=== PATIENT | male | born 1940 ===

== ENCOUNTER 2016-08-21 10:52 | Inpatient (IN) | payer MEDICARE, OTHER ==
[2016-08-21 10:54] VITALS: BMI 15.3
[2016-08-21] MEDS ORDERED: Sodium Chloride 0.9% 500 ML IV STA (11:19)
[2016-08-21] MEDS ORDERED: Sodium Chloride 0.9% 1,000 ML IV STA (11:21)
--- NOTE | 2016-08-21 11:24 | ED PDOC ---
HPI: General Adult Time Seen by Provider: 08/21/16 11:04 Chief Complaint (Nursing): Weakness/Neurological Deficit Chief Complaint (Provider): Deconditioning and need peg tube History Per: Family History/Exam Limitations: clinical condition Onset/Duration Of Symptoms: Days (3 weeks) Additional Complaint(s): [facility] tube [facility]. Pt. has not been eating for 3 weeks. Pt. is nonverbal and does not move/communicate. Pt. with no cough, fever, dyspnea. Has lung CA. Sent by Dr. Moore. Per daughter, pt. is a DNR and DNI. No invasive measures. Past Medical History Vital Signs: Last Vital Signs Temp 98.1 F 08/21/16 12:32 Pulse 109 H 08/21/16 12:32 Resp 20 08/21/16 12:32 BP 90/50 L 08/21/16 12:32 Pulse Ox 100 08/21/16 12:32 - Medical History PMH: Anemia, Arthritis, COPD (on 24 hr oxygen), Dementia, Diabetes (type II), GERD, HTN, Hypercholesterolemia, Hyperlipidemia, Hyperthyroidism, Hypothyroidism , Chronic Kidney Disease, TIA Denies: Alzheimer's Disease, Anxiety, Asthma, Atrial Fibrillation, Bipolar Disorder, Bronchitis, CAD, Cardia Arrhythmia, CHF, Crohn's Disease, Depression, Diverticulitis, Emphysema, Fractures, Gastritis, Gall Bladder Disease, HIV, Kidney Stones, Migraine, Mitral Valve Prolapse, Multiple Sclerosis, Osteoporosis , Pancreatitis, Paranoia, Parkinson's Disease, Peripheral Edema, Pneumonia, Post Traumatic Stress Disorder, Pulmonary Embolism, Rheumatoid Arthritis, Schizophrenia, Seizures, Sickle Cell Disease, Sexually Transmitted Disease, Sleep Apnea - Surgical History Surgical History: Denies: Appendectomy, CABG, Carotid Endarterectomy, Cholecystectomy, Coronary Stent, Pacemaker, Tonsillectomy - Family History Family History: States: Unknown Family Hx - Living Arrangements Living Arrangements: Correction/Assist Lvng - Social History Current smoker - smoking cessation education provided: No Alcohol: None Drugs: Denies - Home Medications Home Medications: Ambulatory Orders Medication Instructions Recorded Finasteride 5 mg PO DAILY 02/24/14 Fluticasone/Salmeterol 250/50 1 puff IH BID 02/24/14 [Advair Diskus 250/50] Roflumilast [Daliresp] 500 mcg PO DAILY 02/24/14 Atorvastatin [Lipitor] 40 mg PO DAILY #0 tab 06/04/16 Insulin Lispro [Humalog (Insulin 4 unit SQ AC #1 cartridge 06/04/16 Lispro)] Prednisone 10 mg PO DAILY #30 tab.ds.pk 06/04/16 Sevelamer [Renagel] 800 mg PO TID tab 06/04/16 guaiFENesin/Dextromethorphan 10 ml PO Q6 PRN #0 udc 06/04/16 [Robitussin DM] hydrALAZINE [Apresoline] 50 mg PO Q6 tab 06/04/16 Acetaminophen [Tylenol 325mg tab] 650 mg PO Q4H PRN 07/18/16 Acetaminophen [Tylenol 325mg tab] 650 mg PO Q4H PRN 07/18/16 Albuterol/Ipratropium [Duoneb 3 3 ml INH Q6H 07/18/16 mg/0.5 mg (3 ml) UD] Calcitriol [Rocaltrol] 0.25 mcg PO DAILY 07/18/16 Cholecalciferol [Vitamin D 1000 IU] 1,000 unit PO DAILY 07/18/16 Clotrimazole/Betamethasone 1 appl TOP QSHIFT 07/18/16 [Lotrisone] Dronabinol [Marinol] 2.5 mg PO BID 07/18/16 Ferrous Sulfate [Feosol] 325 mg PO BID 07/18/16 Furosemide [Lasix] 30 mg PO DAILY 07/18/16 Levothyroxine [Synthroid] 25 mcg PO DAILY 07/18/16 Magnesium Hydroxide [Milk Of 30 ml PO DAILY PRN 07/18/16 Magnesia] Megestrol Acetate [Megace] 10 ml PO DAILY 07/18/16 Melatonin/Pyridoxine [Melatonin 5 5 mg PO HS 07/18/16 mg Tablet] Mirtazapine 7.5 mg PO HS 07/18/16 Multivitamin [Multi-Vitamin Daily] 1 tab PO DAILY 07/18/16 Pantoprazole Sodium [Protonix] 20 mg PO DAILY 07/18/16 Vitamin A/D [Vitamin A&D] 1 appl TOP QSHIFT 07/18/16 Vortioxetine Hydrobromide 10 mg PO DAILY 07/18/16 [Trintellix] amLODIPine [Norvasc] 10 mg PO DAILY 07/18/16 Azithromycin 500MG/NS 250ml 500 mg IV DAILY #5 bag 07/20/16 [Zithromax 500mg in NS] Nystatin [Nystatin Oral Susp] 5 ml PO QID #120 udc 07/20/16 Vancomycin 1 GM [Vancomycin 1GM in 1 gm IVPB DAILY #6 bag 07/20/16 Normal Saline Addvantage] - Allergies Allergies/Adverse Reactions: Allergies Allergy/AdvReac Type Severity Reaction Status Date / Time No Known Allergies Allergy Verified 02/24/14 12:07 Review of Systems Review Of Systems: ROS cannot be obtained secondary to pt's inabilty to answer questions. Physical Exam - Reviewed Nursing Documentation Reviewed: Yes Vital Signs Reviewed: Yes - Physical Exam Appears: Positive for: Uncomfortable Head Exam: Positive for: ATRAUMATIC, NORMAL INSPECTION, NORMOCEPHALIC Skin: Positive for: Normal Color, Warm, DRY Eye Exam: Positive for: Normal appearance, PERRL ENT: Negative for: Nasal Congestion, Pharyngeal Erythema Neck: Positive for: Normal, Supple Cardiovascular/Chest: Positive for: Tachycardia (mild ) Respiratory: Positive for: Normal Breath Sounds, Decreased Breath Sounds. Negative for: Accessory Muscle Use Gastrointestinal/Abdominal: Positive for: Bowel Sounds, Soft. Negative for: Tenderness Back: Positive for: Normal Inspection. Negative for: L CVA Tenderness, R CVA Tenderness Extremity: Positive for: Normal ROM. Negative for: Tenderness, Pedal Edema Neurologic/Psych: Positive for: Other (does not follow commands or respond to questions; responds to pain). Negative for: Alert, Oriented, Facial Droop - Laboratory Results Result Diagrams: 08/21/16 11:42 08/21/16 11:42 Interpretation Of Abn Labs: 68 glucose, bun/cr elevated, wbc elevated, K 2.6 - ECG ECG: Positive for: Interpreted By Me, Viewed By Me ECG Rhythm: Positive for: Sinus Tachycardia (mild), Nonspecific Changes O2 Sat by Pulse Oximetry: 100 Pulse Ox Interpretation: Normal - Radiology X-Ray: Interpreted by Me, Viewed By Me - Progress ED Course And Treament: 1129: Spoke with Dr. Moore. Will admit for peg tube. Well known to him. Dr. Ruby consult. BP low, will give fluids. Pt. is DNR and DNI. Daughter at bedside. She and pt. wishes are no central line or invasive measures. 1126: Stable. Continue K, fluids, D50 amp. Pt. deconditioned. Disposition - Clinical Impression Clinical Impression: Muscular deconditioning, Hypokalemia, Hypoglycemia, Dehydration - Patient ED Disposition Is Patient to be Admitted: Yes Counseled Patient/Family Regarding: Studies Performed, Diagnosis - Disposition Disposition Time: 13:29 Condition: FAIR - Pt Status Changed To: Hospital Disposition Of: Inpatient - Admit Certification Admit to Inpatient:: After my assessment, the patient will require hospitalization for at least two midnights. This is because of the severity of symptoms shown, intensity of services needed, and/or the medical risk in this patient being treated as an outpatient. - POA Present On Arrival: Pressure Ulcer (erythema to sacrum and hip)
[2016-08-21 11:58] LABS: BASO % 0.1 % (0.0-2.0); LYMPH # 0.3 K/uL (1.0-4.3); MEAN CELL VOLUME 86.1 fl (80.0-94.0); MEAN CORPUSCULAR HEMOGLOBIN 26.8 pg (27.0-31.0); MEAN CORPUSCULAR HGB CONC 31.1 g/dL (33.0-37.0); MEAN PLATELET VOLUME 9.6 fl (7.2-11.7); MONO # 2.7 K/uL (0.0-0.8); MONO % 9.6 % (0.0-10.0); NEUT # 25.2 K/uL (1.8-7.0); NEUT % 89.3 % (50.0-75.0); NRBC % 0.3 % (0.0-0.0); PLATELET COUNT 150 K/uL (130-400); RED CELL DISTRIBUTION WIDTH 19.7 % (11.5-14.5); WHITE BLOOD COUNT 28.2 K/uL (4.8-10.8)
[2016-08-21 12:01] LABS: ALB/GLOB RATIO 0.7 (1.0-2.1); BILIRUBIN,TOTAL 0.4 mg/dl (0.2-1.3); CALCIUM 8.2 mg/dL (8.4-10.2); POTASSIUM 2.6 MMOL/L (3.6-5.0); TOTAL PROTEIN 4.1 G/DL (6.3-8.2)
[2016-08-21 12:07] LABS: PARTIAL THROMBOPLASTIN TIME 27.5 SECONDS (23.3-32.5)
[2016-08-21 12:12] LABS: TROPONIN I 0.09 ng/mL (0.00-0.120)
[2016-08-21] MEDS ORDERED: Dextrose 50% SYRINGE Inj (50 ml) IVP ONE (13:11)
[2016-08-21] MEDS ORDERED: POTASSIUM CHL IV SCH (13:15)
[2016-08-21] MEDS ORDERED: D5 NS IV SCH (13:15)
[2016-08-21] MEDS ORDERED: Dextrose 50% SYRINGE Inj (50 ml) ONE (13:23)
[2016-08-21] MEDS ORDERED: Potassium Chl 40mEq & D5W 1,000 ML IV SCH (13:45)
[2016-08-21] MEDS ORDERED: Ciprofloxacin 400mg/200ml D5W 200 ML IVPB STA (13:49)
[2016-08-21] MEDS ORDERED: metroNIDAZOLE 500mg/100ml NS 100 ML IV STA (13:49)
--- NOTE | 2016-08-21 13:52 | RAD ---
PROCEDURE: Radiographs of the chest and abdomen (obstructive series) HISTORY: deconditioning COMPARISON: No prior. TECHNIQUE: AP radiograph of the chest, with upright and supine radiographs of the abdomen. FINDINGS: CHEST: Lungs: Consolidative changes bilaterally. Left pleural effusion. Probable mass left Cardiovascular: Upper lobe Pleura: Left pleural effusion. No pneumothorax. Other findings: None. ABDOMEN AND PELVIS: Bowel: No evidence of obstruction. Thumb printing, thickening of the wall of the transverse colon likely colitis. Free air: None. Bones: Unremarkable. Other findings: None. IMPRESSION: Findings consistent with colitis without evidence of mechanical bowel obstruction or free air. New line lower lobe infiltrates, rib left upper lobe mass, left pleural effusion
[2016-08-21 13:54] LABS: BASOPHIL 1 % (0-2); METAMYELOCYTE 2 % (0-0); MYELOCYTE 2 % (0-0); NEUTROPHIL 84 % (42-75); TOTAL CELLS COUNTED 100
[2016-08-21 13:56] LABS: GIANT PLATELETS PRESENT; LARGE PLATELETS PRESENT
--- NOTE | 2016-08-21 14:58 | CT ---
PROCEDURE: CT Abdomen and Pelvis without intravenous contrast HISTORY: R/O stone COMPARISON: CT abdomen/pelvis 05/22/2016. CT chest 07/18/2016 TECHNIQUE: Without contrast.. Contrast Dose: 0 Radiation dose: Total exam DLP = 283.00 mGy-cm. FINDINGS: LOWER THORAX: Bilateral pleural effusion. Prior chest CT showed a smaller left pleural effusion no right pleural effusion. There is now moderate left and small right pleural effusion. No consolidation. Thickening of left major fissure. LIVER: Please note that evaluation of the abdomen is grossly limited due to extensive anasarca and absent intravenous or oral contrast material. Liver normal in size, contour and attenuation. No mass or biliary dilatation appreciated. GALLBLADDER AND BILE DUCTS: Not appreciated. Likely decompressed. PANCREAS: No gross abnormality. Limited evaluation. SPLEEN: Atrophic spleen, 2.7 cm greatest dimension, with nonspecific 9 mm hyperdensity. Essentially unchanged from prior examination. ADRENALS: No abnormality appreciated. KIDNEYS AND URETERS: Absent right kidney. Left kidney shows no mass or hydronephrosis. There is a vascular calcification noted in the mid aspect. 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 Suboptimally evaluated. No abdominal aortic aneurysm. BOWEL: There is garcia colitis. There is marked mural thickening of the rectum. There is no evidence of bowel obstruction. APPENDIX: Not visualized. PERITONEUM: Evaluation limited due to extensive anasarca. No clear evidence of ascites. No pneumoperitoneum. LYMPH NODES: Unremarkable. No enlarged lymph nodes. BLADDER: Poorly distended. Bladder wall mildly thickened. Nonspecific. REPRODUCTIVE: Mild prostate enlargement. BONES: No osseous fracture. Severe osteoarthritis of right hip with remodeling of acetabulum. Extensive subchondral cysts. Minimal osteoarthritis of left hip. OTHER FINDINGS: None. IMPRESSION: Bilateral pleural effusions. Right pleural effusion was not evident on recent chest CT examination of 07/18/2016. Left pleural effusion has increased mildly in extent. Extensive diffuse anasarca. Garcia colitis. Consider infectious etiology. Additional minor findings as above.
[2016-08-21] MEDS ORDERED: Magnesium Hydroxide Susp 30 ml UD PO PRN (16:02)
[2016-08-21] MEDS ORDERED: guaiFENesin DM 200 mg-20 mg/10 ml UD PO PRN (16:02)
[2016-08-21] MEDS ORDERED: Dextrose 5%/0.45% NS 1,000 ML IV SCH (16:15)
[2016-08-21] MEDS ORDERED: Albuterol-Ipratrop 3 mg / 0.5 (3 ml) UD INH SCH (16:15)
--- NOTE | 2016-08-21 16:18 | CP.PCM.HP ---
<Lilly Kenny - Last Filed: 08/22/16 15:13> History of Present Illness - History of Present Illness History of Present Illness: Pt is a 75 y/o male with COPD (on 24hr oxygen), diabetes, CKD, non verbal sent from long-term for peg tube insertion because pt has not been eating for 3 weeks. full ROS unable to obtain as pt is not verbal. per ed work up pt has colitis. Present on Admission - Present on Admission Any Indicators Present on Admission: Yes History of Uncontrolled Diabetes: Yes Review of Systems - Review of Systems All systems: reviewed and no additional remarkable complaints except Review of Systems: per HPI Past Patient History - Infectious Disease Hx of Infectious Diseases: None - Past Medical History & Family History Past Medical History?: Yes - Past Social History Alcohol: None Drugs: Denies - CARDIAC Hx Cardiac Disorders: Yes - PULMONARY Hx Respiratory Disorders: Yes - NEUROLOGICAL Hx Neurological Disorder: Yes - HEENT Hx HEENT Problems: Yes - RENAL Hx Chronic Kidney Disease: Yes - ENDOCRINE/METABOLIC Hx Endocrine Disorders: Yes - HEMATOLOGICAL/ONCOLOGICAL Hx Anemia: Yes Hx Human Immunodeficiency Virus (HIV): No Hx Sickle Cell Disease: No - INTEGUMENTARY Hx Dermatological Problems: No - MUSCULOSKELETAL/RHEUMATOLOGICAL Hx Arthritis: Yes Hx Fractures: No Hx Osteoporosis: No Hx Rheumatoid Arthritis: No - GASTROINTESTINAL Hx Crohn's Disease: No Hx Diverticulitis: No Hx Gall Bladder Disease: No Hx Gastritis: No Hx Pancreatitis: No - GENITOURINARY/GYNECOLOGICAL Hx Sexually Transmitted Disorders: No - PSYCHIATRIC Hx Anxiety: No Hx Bipolar Disorder: No Hx Depression: No Hx Paranoia: No Hx Post Traumatic Stress Disorder: No Hx Schizophrenia: No - SURGICAL HISTORY Hx Appendectomy: No Hx Carotid Endarterectomy: No Hx Cholecystectomy: No Hx Coronary Artery Bypass Graft: No Hx Coronary Stent: No Hx Tonsillectomy: No - ANESTHESIA Hx Anesthesia: Yes Hx Anesthesia Reactions: No Meds Allergies/Adverse Reactions: Allergies Allergy/AdvReac Type Severity Reaction Status Date / Time No Known Allergies Allergy Verified 02/24/14 12:07 Physical Exam - Constitutional Appears: No Acute Distress, Cachectic, Chronically Ill - ENT Exam ENT Exam: Mucous Membranes Dry - Respiratory Exam Respiratory Exam: Clear to Auscultation Bilateral, NORMAL BREATHING PATTERN. absent: Rhonchi, Wheezes - Cardiovascular Exam Cardiovascular Exam: REGULAR RHYTHM, +S1, +S2 - GI/Abdominal Exam GI & Abdominal Exam: Normal Bowel Sounds, Soft - Extremities Exam Extremities exam: Negative for: calf tenderness - Neurological Exam Neurological exam: Alert - Skin Skin Exam: Dry Additional comments: erythema noted on upper chest Results - Vital Signs Recent Vital Signs: Last Vital Signs Temp 98.1 F 08/21/16 12:32 Pulse 102 H 08/21/16 14:28 Resp 20 08/21/16 14:28 BP 92/46 L 08/21/16 14:28 Pulse Ox 100 08/21/16 13:29 - Labs Result Diagrams: 08/22/16 07:16 08/22/16 07:16 Labs: Laboratory Results - last 24 hr 08/21/16 11:42 WBC 28.2 H RBC 3.26 L Hgb 8.7 L Hct 28.0 L MCV 86.1 MCH 26.8 L MCHC 31.1 L RDW 19.7 H Plt Count 150 D MPV 9.6 Neut % (Auto) 89.3 H Lymph % (Auto) 1.0 L [place] % (Auto) 9.6 Eos % (Auto) 0.0 Baso % (Auto) 0.1 Neut # 25.2 H Lymph # 0.3 L [place] # 2.7 H Eos # 0.0 Baso # 0.0 Neutrophils % (Manual) 84 H Band Neutrophils % 9 H Lymphocytes % (Manual) 1 L Monocytes % (Manual) 1 Basophils % (Manual) 1 Metamyelocytes % 2 H Myelocytes % 2 H Toxic Granulation Present Platelet Estimate Normal Large Platelets Present Giant Platelets Present Hypochromasia (manual) Moderate Poikilocytosis (manual Moderate Anisocytosis (manual) Moderate Target Cells Slight Tear Drop Cells Slight Ovalocytes Slight Sathya Cells Moderate Schistocytes Slight PT 14.6 H INR 1.40 H APTT 27.5 Sodium 140 Potassium 2.6 L Chloride 108 H Carbon Dioxide 21 L Anion Gap 14 BUN 71 H Creatinine 2.2 H Est GFR ( Amer) 36 Est GFR (Non-Af Amer) 29 Random Glucose 68 L Calcium 8.2 L Total Bilirubin 0.4 AST 24 ALT 39 Alkaline Phosphatase 89 Troponin I 0.0900 Total Protein 4.1 L Albumin 1.7 L D Globulin 2.4 Albumin/Globulin Ratio 0.7 L Lipase 12 L Assessment & Plan - Assessment and Plan (Free Text) Assessment: pt is a 75 y/o male admitted for peg tube insertion and colitis Plan: colitis antibiotics as ordered monitor vitals for fever 2. Peg tube placement due to not eating GI consulted Discussion about risk and benefits had with pt's daughter 3. COPD on 24hr O2 monitor vitals 4. diabetes (uncontrolled) accucheck ssi monitory closely for hypoglycemia as pt not eating diet- NPO for tube placement IVF for hydration dvt- lovenox 40mg SC <Elan Moore - Last Filed: 08/23/16 12:45> Results - Vital Signs Recent Vital Signs: Last Vital Signs Temp 97.3 F L 08/23/16 08:27 Pulse 74 08/23/16 08:27 Resp 20 08/23/16 08:27 BP 60/29 L 08/23/16 08:27 Pulse Ox 96 08/23/16 08:27 - Labs Result Diagrams: 08/22/16 07:16 08/22/16 07:16 Labs: Laboratory Results - last 24 hr 08/22/16 08/22/16 08/23/16 17:29 22:32 05:43 POC Glucose (mg/dL) 293 H 145 H 166 H Assessment & Plan - Assessment and Plan (Free Text) Assessment: Patient was personally seen and examined by me in rounds with residents. Available labs and diagnostic data reviewed. Case, Patient's condition and management plan discussed with residents in rounds. Agree with resident's documentation. Plan: As ordered. Elan Moore MD
[2016-08-21] MEDS ORDERED: Sodium Chloride 3% for Inhalation 4 ML VIAL.NEB IH PRN (20:31)
[2016-08-21] MEDS ORDERED: Potassium CL 10 MEQ/50 ML 50 ML IVPB SCH (21:00)
[2016-08-21] MEDS ORDERED: Ciprofloxacin 400mg/200ml D5W 200 ML IVPB SCH (21:00)
[2016-08-22] MEDS: Dextrose 5%/0.9% NS 1,000 ML IV SCH ×4 (00:28→20:53)
[2016-08-22] MEDS: metroNIDAZOLE 500mg/100ml NS 100 ML IVPB SCH ×3 (00:29→21:08)
[2016-08-22] MEDS: Potassium CL 10 MEQ/50 ML 50 ML IVPB SCH ×6 (00:30→05:30)
[2016-08-22] MEDS: Albuterol-Ipratrop 3 mg / 0.5 (3 ml) UD INH SCH ×4 (01:08→20:11)
[2016-08-22] MEDS: Levothyroxine 25 MCG TAB PO SCH (06:21)
[2016-08-22 07:45] LABS: CALCIUM 7.6 mg/dL (8.4-10.2); POTASSIUM 4.1 MMOL/L (3.6-5.0); TOTAL PROTEIN 3.6 G/DL (6.3-8.2)
[2016-08-22 07:46] LABS: ALB/GLOB RATIO 0.7 (1.0-2.1); BILIRUBIN,TOTAL 0.2 mg/dl (0.2-1.3)
[2016-08-22 08:03] LABS: BASO # 0.1 K/uL (0.0-0.2); BASO % 0.4 % (0.0-2.0); EOS % 0.1 % (0.0-4.0); LYMPH # 0.3 K/uL (1.0-4.3); LYMPH % 1.1 % (20.0-40.0); MEAN CELL VOLUME 86.1 fl (80.0-94.0); MEAN CORPUSCULAR HEMOGLOBIN 26.8 pg (27.0-31.0); MEAN CORPUSCULAR HGB CONC 31.2 g/dL (33.0-37.0); MEAN PLATELET VOLUME 10.1 fl (7.2-11.7); MONO # 3.8 K/uL (0.0-0.8); MONO % 12.3 % (0.0-10.0); NEUT # 26.7 K/uL (1.8-7.0); NEUT % 86.1 % (50.0-75.0); NRBC % 0.4 % (0.0-0.0)
[2016-08-22] MEDS: Fluticasone-Salmeterol 250-50mcg Diskus IH SCH ×2 (08:41→16:14)
[2016-08-22] MEDS: Multivitamin With Minerals Tab PO SCH ×2 (08:42→08:55)
[2016-08-22] MEDS: Megestrol Acetate 40 mg/ml Cup PO SCH ×2 (08:43→08:53)
[2016-08-22] MEDS: Pantoprazole 20 mg EC Tab PO SCH ×2 (08:45→08:55)
[2016-08-22] MEDS: Insulin Lispro (humaLOG) 100 Units/ml Inj SC SCH ×7 (08:46→17:47)
--- NOTE | 2016-08-22 10:59 | CP.PCM.CON ---
History of Present Illness - History of Present Illness History of Present Illness: 75 yr old M with multiple comorbidities as recorded in the chart and per daughter with recent diagnosis of Lung CA in May 2016, severe COPD on home oxygen, bilateral pleural effucions, anemia, arthritis, dementia, Diabetes ( type II), GERD, HTN, Hypercholesterolemia, Hyperlipidemia, Hyperthyroidism, Hypothyroidism, Chronic Kidney Disease, TIA admitted from [facility] with failure to thrive and decreased appetite. Patient wsa supposed to be hospice but daughter is ambivalent currently. He is DNR/DNI Review of Systems - Review of Systems Review of Systems: 12 point ROS extracted from chart and daughter at bedside Past Patient History - Infectious Disease Hx of Infectious Diseases: None - Past Medical History & Family History Past Medical History?: Yes - Past Social History Smoking Status: Former Smoker - CARDIAC Hx Cardiac Disorders: Yes Hx Hypertension: Yes - PULMONARY Hx Respiratory Disorders: Yes Hx Lung Cancer: Yes - NEUROLOGICAL Hx Neurological Disorder: Yes Hx Dementia: Yes - HEENT Hx HEENT Problems: Yes - RENAL Hx Chronic Kidney Disease: Yes - ENDOCRINE/METABOLIC Hx Endocrine Disorders: Yes Hx Diabetes Mellitus Type 2: Yes Hx Hyperthyroidism: Yes Hx Hypothyroidism: Yes - HEMATOLOGICAL/ONCOLOGICAL Hx Anemia: Yes Hx Cancer: Yes Hx Human Immunodeficiency Virus (HIV): No Hx Sickle Cell Disease: No - INTEGUMENTARY Hx Dermatological Problems: No - MUSCULOSKELETAL/RHEUMATOLOGICAL Hx Falls: Yes - GASTROINTESTINAL Hx Crohn's Disease: No Hx Diverticulitis: No Hx Gall Bladder Disease: No Hx Gastritis: No Hx Pancreatitis: No - GENITOURINARY/GYNECOLOGICAL Hx Sexually Transmitted Disorders: No - PSYCHIATRIC Hx Substance Use: No - SURGICAL HISTORY Hx Appendectomy: No Hx Carotid Endarterectomy: No Hx Cholecystectomy: No Hx Coronary Artery Bypass Graft: No Hx Coronary Stent: No Hx Tonsillectomy: No - ANESTHESIA Hx Anesthesia: Yes Hx Anesthesia Reactions: No Hx Malignant Hyperthermia: No Has any member of the family had a problem w/ anesthesia?: No Meds Allergies/Adverse Reactions: Allergies Allergy/AdvReac Type Severity Reaction Status Date / Time No Known Allergies Allergy Verified 02/24/14 12:07 - Medications Medications: Current Medications Albuterol/Ipratropium (Duoneb 3 Mg/0.5 Mg (3 Ml) Ud) 3 ml INH RQ6 [facility] Last Admin: 08/22/16 07:36 Dose: 3 ml Amlodipine Besylate (Norvasc) 10 mg PO DAILY [facility] Last Admin: 08/22/16 08:43 Dose: Not Given Atorvastatin Calcium (Lipitor) 40 mg PO HS [facility] Last Admin: 08/22/16 00:06 Dose: 40 mg Calcitriol (Rocaltrol) 0.25 mcg PO DAILY [facility] Last Admin: 08/22/16 08:55 Dose: Not Given Cholecalciferol (Vitamin D) 1,000 iu PO DAILY [facility] Last Admin: 08/22/16 08:56 Dose: Not Given Ferrous Sulfate (Feosol) 325 mg PO BID [facility] Last Admin: 08/22/16 08:53 Dose: Not Given Finasteride (Proscar) 5 mg PO [facility] Last Admin: 08/22/16 00:07 Dose: 5 mg Furosemide (Lasix) 30 mg PO DAILY [facility] Last Admin: 08/22/16 08:45 Dose: Not Given Guaifenesin/Dextromethorphan (Robitussin Dm) 10 ml PO Q6 PRN PRN Reason: Cough Home Med (Melatonin/Pyridoxine [Melatonin 5 Mg Tablet]) 5 mg PO [facility] Home Med (Vortioxetine Hydrobromide [Trintellix]) 10 mg PO DAILY [facility] Hydralazine HCl (Apresoline) 50 mg PO Q6 [facility] Last Admin: 08/22/16 09:07 Dose: Not Given Metronidazole (Flagyl 500mg/100ml Ns) 100 mls @ 100 mls/hr IVPB Q12 [facility] Last Admin: 08/22/16 00:29 Dose: Not Given Levofloxacin/Dextrose (Levaquin 500mg) 100 mls @ 100 mls/hr IVPB DAILY [facility] Last Admin: 08/22/16 08:37 Dose: 100 mls/hr Dextrose/Sodium Chloride (Dextrose 5%/0.9% Ns 1000 Ml) 1,000 mls @ 120 mls/hr IV .Q8H20M [facility] Last Admin: 08/22/16 08:37 Dose: 120 mls/hr Insulin Human Lispro (Humalog) 4 units SC AC [facility] Last Admin: 08/22/16 08:46 Dose: Not Given Insulin Human Lispro (Humalog) 4 units SC AC [facility] Last Admin: 08/22/16 08:53 Dose: Not Given Lactulose (Enulose) 20 gm PO DAILY PRN PRN Reason: Constipation Levothyroxine Sodium (Synthroid) 25 mcg PO DAILY@0630 [facility] Last Admin: 08/22/16 06:21 Dose: Not Given Magnesium Hydroxide (Milk Of Magnesia) 30 ml PO DAILY PRN PRN Reason: Constipation Megestrol Acetate (Megace) 400 mg PO DAILY [facility] Last Admin: 08/22/16 08:53 Dose: Not Given Mirtazapine (Remeron) 7.5 mg PO HS [facility] Last Admin: 08/22/16 00:07 Dose: 7.5 mg Multivitamins/Minerals (Therapeutic-M Tab) 1 tab PO DAILY [facility] Last Admin: 08/22/16 08:55 Dose: Not Given Pantoprazole Sodium (Protonix Ec Tab) 20 mg PO DAILY [facility] Last Admin: 08/22/16 08:55 Dose: Not Given Prednisone (Prednisone Tab) 10 mg PO DAILY [facility] Last Admin: 08/22/16 08:54 Dose: Not Given Roflumilast (Daliresp) 500 mcg PO DAILY [facility] Last Admin: 08/22/16 08:52 Dose: Not Given Fluticasone/Salmeterol (Advair Diskus 250/50) 1 puff IH BID [facility] Last Admin: 08/22/16 08:41 Dose: 1 puff Sevelamer HCl (Renagel) 800 mg PO TIDWM [facility] Last Admin: 08/22/16 08:55 Dose: Not Given Physical Exam - Constitutional Appears: In Acute Distress, Confused, Cachectic, Chronically Ill - Head Exam Additional comments: On venti mask Coarse breath sounds. Rales, ronchi S1 S2 regular, no murmurs Soft. Non tender. No guarding LE - mild edema Results - Vital Signs Recent Vital Signs: Last Vital Signs Temp 97.7 F 08/22/16 08:18 Pulse 64 08/22/16 08:18 Resp 20 08/22/16 08:18 BP 60/41 L 08/22/16 08:45 Pulse Ox 95 08/22/16 08:18 - Labs Result Diagrams: 08/22/16 07:16 08/22/16 07:16 Labs: Laboratory Results - last 24 hr 08/21/16 08/21/16 08/22/16 11:35 11:42 07:16 WBC 28.2 H 31.0 H RBC 3.26 L 3.02 L Hgb 8.7 L 8.1 L Hct 28.0 L 26.0 L MCV 86.1 86.1 MCH 26.8 L 26.8 L MCHC 31.1 L 31.2 L RDW 19.7 H 20.0 H Plt Count 150 D 100 L D MPV 9.6 10.1 Neut % (Auto) 89.3 H 86.1 H Lymph % (Auto) 1.0 L 1.1 L [place] % (Auto) 9.6 12.3 H Eos % (Auto) 0.0 0.1 Baso % (Auto) 0.1 0.4 Neut # 25.2 H 26.7 H Lymph # 0.3 L 0.3 L [place] # 2.7 H 3.8 H Eos # 0.0 0.0 Baso # 0.0 0.1 Neutrophils % (Manual) 84 H Band Neutrophils % 9 H Lymphocytes % (Manual) 1 L Monocytes % (Manual) 1 Basophils % (Manual) 1 Metamyelocytes % 2 H Myelocytes % 2 H Toxic Granulation Present Platelet Estimate Normal Large Platelets Present Giant Platelets Present Hypochromasia (manual) Moderate Poikilocytosis (manual Moderate Anisocytosis (manual) Moderate Target Cells Slight Tear Drop Cells Slight Ovalocytes Slight [place] Cells Moderate Schistocytes Slight PT 14.6 H INR 1.40 H APTT 27.5 Sodium 140 134 Potassium 2.6 L 4.1 Chloride 108 H 108 H Carbon Dioxide 21 L 20 L Anion Gap 14 10 BUN 71 H 67 H Creatinine 2.2 H 2.1 H Est GFR ( Amer) 36 38 Est GFR (Non-Af Amer) 29 31 POC Glucose (mg/dL) 91 Random Glucose 68 L 255 H Calcium 8.2 L 7.6 L Total Bilirubin 0.4 0.2 AST 24 24 ALT 39 46 Alkaline Phosphatase 89 97 Troponin I 0.0900 Total Protein 4.1 L 3.6 L Albumin 1.7 L D 1.4 L Globulin 2.4 2.1 L Albumin/Globulin Ratio 0.7 L 0.7 L Lipase 12 L - Imaging and Cardiology CT scan - abdomen Status: Image reviewed by me, Report reviewed by me Assessment & Plan - Assessment and Plan (Free Text) Assessment: 75 yr old cachectic male DNR/DNI with lung CA, pleural effucions in COPD exacerbation on venti mask and respiratory distress with failure to thrive. GI consulted for PEG placement. Has absolute contraindications to PEG / invasive procedures due to new leukocytosis, respiratory distress and DNR/DNI status. He has bilateral effusions which may lead him to get intubated during upper endoscopy. Discussed at length with daughter at bedside ([phone]) regarding above. She does not want intubation. Team should consult IR for PEG or PPN. Please call prn . Thank you for letting us participate in the care of this patient - Date & Time Date: 08/22/16 Time: 11:00
--- NOTE | 2016-08-22 11:57 | CARD ---
APPROVED REPORT EKG Measurement Heart [id number] <Conclusion> Baseline artefacts do not allow identification of P waves ?? Sinus rhythm Left axis deviation Low voltage QRS Incomplete right bundle branch block ??Septal infarct, age undetermined ST & T wave abnormality, consider anterior ischemia Abnormal ECG
--- NOTE | 2016-08-22 13:58 | PN ---
DATE: 08/22/2016 The patient seen and examined. Interim events noted. Consults noted, appreciated. Case discussed w ith patient's daughter at length at bedside and pros and cons have been explained. The family is sti ll undecided to with PEG or not. The patient's family wants to continue DNR and DNI status, un derstand patient's general condition and impending poor outcome. The patient is not able to provide informative history or review of systems. PHYSICAL EXAMINATION: GENERAL: The patient is chronically sick looking, cachectic, elderly male with rapid respiration. VITAL SIGNS: Temperature 97.7, pulse 64, respiration 20, blood pressure /41. HEENT: Shrunken eyeball, no JVD, no thyromegaly, no lymphadenopathy. HEART: S1, S2 regular. No significant murmur, gallop or rub is heard. LUNGS: Shows good bilateral air exchange, no rales or rhonchi. ABDOMEN: Soft, nontender, no organomegaly, no fluid. Bowel sounds are plus. EXTREMITIES: No calf swelling, no tenderness, no acute ischemia. CENTRAL NERVOUS SYSTEM: Essentially unchanged. DIAGNOSTIC DATA: Available reviewed. WBC 31, hemoglobin 8.1, hematocrit 26, platelets 100. Sodium 134, potassium 4.1, chloride 108, bicarb 20, BUN 67, creatinine 2.1. Overall, patient's general medical condition is very poor. PLAN: As ordered. Elan Moore MD cc: [id number] TT: 08/22/2016 13:58:05 Confirmation # [id number] Dictation # [id number]
[2016-08-22 17:22] VITALS: TEMP 97.3
[2016-08-23] MEDS: Albuterol-Ipratrop 3 mg / 0.5 (3 ml) UD INH SCH ×2 (01:02→07:16)
[2016-08-23] MEDS: Dextrose 5%/0.9% NS 1,000 ML IV SCH ×3 (04:55→09:42)
[2016-08-23] MEDS ORDERED: Sodium Chloride 0.9% 1,000 ML IV SCH (07:45)
[2016-08-23 08:29] VITALS: BP 60/29; PULSE 74; RESP 20; O2SAT 96
[2016-08-23] MEDS: Fluticasone-Salmeterol 250-50mcg Diskus IH SCH (09:42)
[2016-08-23] MEDS: metroNIDAZOLE 500mg/100ml NS 100 ML IVPB SCH (09:43)
[2016-08-23] MEDS: Megestrol Acetate 40 mg/ml Cup PO SCH (09:43)
[2016-08-23] MEDS: Insulin Lispro (humaLOG) 100 Units/ml Inj SC SCH ×2 (09:43)
[2016-08-23] MEDS: Pantoprazole 20 mg EC Tab PO SCH (09:43)
[2016-08-23] MEDS: Multivitamin With Minerals Tab PO SCH (09:45)
[2016-08-23] MEDS: Levothyroxine 25 MCG TAB PO SCH (09:45)
--- NOTE | 2016-08-23 11:37 | PCM.IRP ---
History of Present Illness - History of Present Illness History of Present Illness: Full Consult to follow. IR consulted for G tube placement. CT scan reviewed. Based on CT findings, a percutaneous gastrostomy tube is not possible. The large bowel is between the stomach and abdominal wall. Recommend: TPN. Objective - Vital Signs/Intake and Output Vital Signs (last 24 hours): Vital Signs - 24 hr 08/22/16 08/22/16 08/23/16 17:21 21:47 08:27 Temperature 97.3 F L 97.3 F L 97.3 F L Pulse Rate 116 H 88 74 Respiratory 16 16 20 Rate Blood Pressure 75/37 L 51/28 L 60/29 L O2 Sat by Pulse 100 89 L 96 Oximetry Intake and Output (last 12 hours): Intake & Output 08/22/16 08/23/16 08/23/16 18:59 06:59 18:59 Intake Total 1440 Balance 1440 Intake: IV 1340 Intake, Piggyback 100 - Medications Medications: Current Medications Albuterol/Ipratropium (Duoneb 3 Mg/0.5 Mg (3 Ml) Ud) 3 ml INH RQ6 [facility] Last Admin: 08/23/16 07:16 Dose: 3 ml Amlodipine Besylate (Norvasc) 10 mg PO DAILY [facility] Last Admin: 08/23/16 09:43 Dose: Not Given Atorvastatin Calcium (Lipitor) 40 mg PO HS [facility] Last Admin: 08/22/16 22:00 Dose: Not Given Calcitriol (Rocaltrol) 0.25 mcg PO DAILY [facility] Last Admin: 08/23/16 09:44 Dose: Not Given Cholecalciferol (Vitamin D) 1,000 iu PO DAILY [facility] Last Admin: 08/23/16 09:45 Dose: Not Given Ferrous Sulfate (Feosol) 325 mg PO BID [facility] Last Admin: 08/23/16 09:42 Dose: Not Given Finasteride (Proscar) 5 mg PO HS [facility] Last Admin: 08/22/16 22:00 Dose: Not Given Furosemide (Lasix) 30 mg PO DAILY [facility] Last Admin: 08/23/16 09:43 Dose: Not Given Guaifenesin/Dextromethorphan (Robitussin Dm) 10 ml PO Q6 PRN PRN Reason: Cough Home Med (Melatonin/Pyridoxine [Melatonin 5 Mg Tablet]) 5 mg PO HS [facility] Home Med (Vortioxetine Hydrobromide [Trintellix]) 10 mg PO DAILY [facility] Hydralazine HCl (Apresoline) 50 mg PO Q6 [facility] Last Admin: 08/23/16 09:42 Dose: Not Given Metronidazole (Flagyl 500mg/100ml Ns) 100 mls @ 100 mls/hr IVPB Q12 [facility] Last Admin: 08/23/16 09:43 Dose: 100 mls/hr Levofloxacin/Dextrose (Levaquin 500mg) 100 mls @ 100 mls/hr IVPB DAILY [facility] Last Admin: 08/23/16 09:44 Dose: 100 mls/hr Dextrose/Sodium Chloride (Dextrose 5%/0.9% Ns 1000 Ml) 1,000 mls @ 120 mls/hr IV .Q8H20M [facility] Last Admin: 08/23/16 09:42 Dose: Not Given Ceftriaxone Sodium 1 gm/ (Sodium Chloride) 100 mls @ 100 mls/hr IVPB DAILY [facility] Last Admin: 08/23/16 09:45 Dose: 100 mls/hr Sodium Chloride (Sodium Chloride 0.9%) 1,000 mls @ 250 mls/hr IV .Q4H [facility] Stop: 08/24/16 07:46 Insulin Human Lispro (Humalog) 4 units SC [facility] Last Admin: 08/23/16 09:43 Dose: Not Given Insulin Human Lispro (Humalog) 4 units SC [facility] Last Admin: 08/23/16 09:43 Dose: Not Given Lactulose (Enulose) 20 gm PO DAILY PRN PRN Reason: Constipation Levothyroxine Sodium (Synthroid) 25 mcg PO DAILY@0630 [facility] Last Admin: 08/23/16 09:45 Dose: Not Given Magnesium Hydroxide (Milk Of Magnesia) 30 ml PO DAILY PRN PRN Reason: Constipation Megestrol Acetate (Megace) 400 mg PO DAILY [facility] Last Admin: 08/23/16 09:43 Dose: Not Given Mirtazapine (Remeron) 7.5 mg PO [facility] Last Admin: 08/22/16 22:00 Dose: Not Given Multivitamins/Minerals (Therapeutic-M Tab) 1 tab PO DAILY [facility] Last Admin: 08/23/16 09:45 Dose: Not Given Pantoprazole Sodium (Protonix Ec Tab) 20 mg PO DAILY [facility] Last Admin: 08/23/16 09:43 Dose: Not Given Prednisone (Prednisone Tab) 10 mg PO DAILY [facility] Last Admin: 08/23/16 09:43 Dose: Not Given Roflumilast (Daliresp) 500 mcg PO DAILY [facility] Last Admin: 08/23/16 09:42 Dose: Not Given Fluticasone/Salmeterol (Advair Diskus 250/50) 1 puff IH BID [facility] Last Admin: 08/23/16 09:42 Dose: Not Given Sevelamer HCl (Renagel) 800 mg PO TIDWM [facility] Last Admin: 08/23/16 09:44 Dose: Not Given - Labs Labs (last 24 hours): Laboratory Results - last 24 hr 08/22/16 08/22/16 08/23/16 17:29 22:32 05:43 POC Glucose (mg/dL) 293 H 145 H 166 H
--- NOTE | 2016-08-23 12:39 | CP.PCM.PRO ---
Pronouncement of Note - Clinical Findings Physical Exam: No Response Verbal/Painful Stimuli, Absent Heart & Breath Sounds , No Pupillary Light Reflex, No Corneal Reflex, Pupils Fixed & Dilated, Absence of Vital Signs - Pronouncement Time Time of Pronouncement of : 11:57 - Notifications Pronouncement Notifications: Family Notified, Atending Notified Park Maintainer Notified: No - Autopsy Autopsy Requested: No [place]: [id number] Additional Comments: Patient with DNR/DNI status. Family (daughter, niece, sister and several other family members) present at bedside. Emotional support offered by staff.
--- NOTE | 2016-08-23 15:25 | PQF GENQUE ---
Dr. Moore, Please clarify the stage of the chronic kidney disease: Stage 1 Stage 2 (mild) Stage 3 (moderate) Stage 4 (severe) Stage 5 Other (please specify) Unable to determine Unknown BUN:71->67;Creatinine:2.2-.2,1; GFR (Af Amer/Non-Af Amer) 36/29->38/31 This form is a permanent part of the medical record Clarification of your documentation is requested to better reflect the severity of illness and intensity of treatment of your patient. Indicators present [] Specify: [] [] Specify: [] [] Specify: [] [] Specify: [] Location in the medical record that reflects the above clinical findings: [] Treatment Provided: [] PHYSICIAN'S RESPONSE Based on your medical judgment of the clinical indicators outlined above please clarify the following: [] Practitioner response [] If unable to determine, please check the box, sign and date. Present On Admission (POA) Indicator: [] Present at the time of admission [] Not present at the time of admission [] Clinically Undetermined In responding to this query, please exercise your independent professional judgment. The fact that a question is asked does not imply that any particular answer is desired or expected. Thank you for your clarification on this documentation. If you have any questions please call. * Thank you, Cayla Olsen RN BSN ext. #[phone] MTDD
--- NOTE | 2016-08-23 15:42 | PQF GENQUE ---
Dr. Moore, Are there any diagnoses associated with the following clinical labs? WBC : 28.2-> 31.0 : bands 9 left shift RBC: 3.26->3.02Plt Count:150->100H/H: 8.7 ->8.1 and 28.0->26.0 OR: Disagree ............................... H and P: admitted for peg tube insertion and colitis ;Plan: colitis : antibiotics as ordered ;monitor vitals for fever 2. Peg tube placement due to not eating GI consulted 3. COPD on 24hr O2 monitor vitals 4. diabetes (uncontrolled) accucheck ssi monitory closely for hypoglycemia as pt not eating diet- NPO for tube placement IVF for hydration Obstructive series: Findings consistent with colitis without evidence of mechanical bowel obstruction or free air. New line lower lobe infiltrates, rib left upper lobe mass, left pleural effusion CT Abdomen/pelvis: B/L pleur effusions; Rt pleural effusion was not evident on recent chest CT examination of 07/18/2016. Lt. pleural effusion has increased mildly in extent. Extensive diffuse anasarca. Womack colitis.Consider infectious etiology. Blood culture; prelim;24 hr; no growth urine/sputum cult cancelled This form is a permanent part of the medical record Clarification of your documentation is requested to better reflect the severity of illness and intensity of treatment of your patient. Indicators present [] Specify: [] [] Specify: [] [] Specify: [] [] Specify: [] Location in the medical record that reflects the above clinical findings: [] Treatment Provided: [] PHYSICIAN'S RESPONSE Based on your medical judgment of the clinical indicators outlined above please clarify the following: [] Practitioner response [] If unable to determine, please check the box, sign and date. Present On Admission (POA) Indicator: [] Present at the time of admission [] Not present at the time of admission [] Clinically Undetermined In responding to this query, please exercise your independent professional judgment. The fact that a question is asked does not imply that any particular answer is desired or expected. Thank you for your clarification on this documentation. If you have any questions please call. * Thank you, Cayla Olsen RN BSN ext. #[phone] MTDD
--- NOTE | 2016-08-23 16:10 | CP.PCM.DIS ---
Provider - Provider Date of Admission: 08/22/16 14:59 Attending physician: Elan Moore MD Primary care physician: Teresa Time Spent in preparation of Discharge (in minutes): 20 Diagnosis - Discharge Diagnosis (1) Dehydration Status: Acute (2) Hypoglycemia Status: Acute (3) Muscular deconditioning Status: Acute Hospital Course - Lab Results Lab Results: Most Recent Lab Values WBC 31.0 K/uL (4.8-10.8) H 08/22/16 07:16 RBC 3.02 Mil/uL (4.40-5.90) L 08/22/16 07:16 Hgb 8.1 g/dL (12.0-18.0) L 08/22/16 07:16 Hct 26.0 % (35.0-51.0) L 08/22/16 07:16 MCV 86.1 fl (80.0-94.0) 08/22/16 07:16 MCH 26.8 pg (27.0-31.0) L 08/22/16 07:16 MCHC 31.2 g/dL (33.0-37.0) L 08/22/16 07:16 RDW 20.0 % (11.5-14.5) H 08/22/16 07:16 Plt Count 100 K/uL (130-400) L D 08/22/16 07:16 MPV 10.1 fl (7.2-11.7) 08/22/16 07:16 Neut % (Auto) 86.1 % (50.0-75.0) H 08/22/16 07:16 Lymph % (Auto) 1.1 % (20.0-40.0) L 08/22/16 07:16 [place] % (Auto) 12.3 % (0.0-10.0) H 08/22/16 07:16 Eos % (Auto) 0.1 % (0.0-4.0) 08/22/16 07:16 Baso % (Auto) 0.4 % (0.0-2.0) 08/22/16 07:16 Neut # 26.7 K/uL (1.8-7.0) H 08/22/16 07:16 Lymph # 0.3 K/uL (1.0-4.3) L 08/22/16 07:16 [place] # 3.8 K/uL (0.0-0.8) H 08/22/16 07:16 Eos # 0.0 K/uL (0.0-0.7) 08/22/16 07:16 Baso # 0.1 K/uL (0.0-0.2) 08/22/16 07:16 Neutrophils % (Manual) 84 % (42-75) H 08/21/16 11:42 Band Neutrophils % 9 % (0-2) H 08/21/16 11:42 Lymphocytes % (Manual) 1 % (20-50) L 08/21/16 11:42 Monocytes % (Manual) 1 % (0-10) 08/21/16 11:42 Basophils % (Manual) 1 % (0-2) 08/21/16 11:42 Metamyelocytes % 2 % (0-0) H 08/21/16 11:42 Myelocytes % 2 % (0-0) H 08/21/16 11:42 Toxic Granulation Present 08/21/16 11:42 Platelet Estimate Normal (NORMAL) 08/21/16 11:42 Large Platelets Present 08/21/16 11:42 Giant Platelets Present 08/21/16 11:42 Hypochromasia (manual) Moderate 08/21/16 11:42 Poikilocytosis (manual Moderate 08/21/16 11:42 Anisocytosis (manual) Moderate 08/21/16 11:42 Target Cells Slight 08/21/16 11:42 Tear Drop Cells Slight 08/21/16 11:42 Ovalocytes Slight 08/21/16 11:42 Sathya Cells Moderate 08/21/16 11:42 Schistocytes Slight 08/21/16 11:42 PT 14.6 SECONDS (9.6-11.2) H 08/21/16 11:42 INR 1.40 (0.92-1.08) H 08/21/16 11:42 APTT 27.5 SECONDS (23.3-32.5) 08/21/16 11:42 Sodium 134 mmol/l (132-148) 08/22/16 07:16 Potassium 4.1 MMOL/L (3.6-5.0) 08/22/16 07:16 Chloride 108 mmol/L (98-107) H 08/22/16 07:16 Carbon Dioxide 20 mmol/L (22-30) L 08/22/16 07:16 Anion Gap 10 (10-20) 08/22/16 07:16 BUN 67 mg/dl (9-20) H 08/22/16 07:16 Creatinine 2.1 mg/dL (0.8-1.5) H 08/22/16 07:16 Est GFR ( Amer) 38 08/22/16 07:16 Est GFR (Non-Af Amer) 31 08/22/16 07:16 POC Glucose (mg/dL) 166 mg/dL (65-110) H 08/23/16 05:43 Random Glucose 255 mg/dL (75-110) H 08/22/16 07:16 Calcium 7.6 mg/dL (8.4-10.2) L 08/22/16 07:16 Total Bilirubin 0.2 mg/dl (0.2-1.3) 08/22/16 07:16 AST 24 U/L (17-59) 08/22/16 07:16 ALT 46 U/L (21-72) 08/22/16 07:16 Alkaline Phosphatase 97 U/L (38-126) 08/22/16 07:16 Troponin I 0.0900 ng/mL (0.00-0.120) 08/21/16 11:42 Total Protein 3.6 G/DL (6.3-8.2) L 08/22/16 07:16 Albumin 1.4 g/dL (3.5-5.0) L 08/22/16 07:16 Globulin 2.1 gm/dL (2.2-3.9) L 08/22/16 07:16 Albumin/Globulin Ratio 0.7 (1.0-2.1) L 08/22/16 07:16 Lipase 12 U/L (23-300) L 08/21/16 11:42 - Hospital Course Hospital Course: Pt was admitted for suspected colitis and peg tube insertion, however pt on HOD# 1 Discharge Exam - Head Exam Additional comments: See pronunciation note Discharge Plan - Follow Up Plan Condition: GUARDED Disposition: WITH WITHOUT AUTOPSY
== END 2016-08-23 14:27 | DRG 392 ==
LOC: H.ER 10:52 → H.ERHOLD 11:16 → H.MEDSURG1 14:34 → OBSVTOIN 08-22 14:59
PROVIDERS: ADMIT Internal Medicine; ATTEND Internal Medicine
DX: K52.9 Noninfective gastroenteritis and colitis, unspecified (principal); L89.212 Pressure ulcer of right hip, stage 2; L89.151 Pressure ulcer of sacral region, stage 1; R64 Cachexia; C34.90 Malignant neoplasm of unspecified part of unspecified bronchus or lung; F03.90 Unspecified dementia, unspecified severity, without behavioral disturbance, psychotic disturbance, mood disturbance, and anxiety; E11.22 Type 2 diabetes mellitus with diabetic chronic kidney disease; E86.0 Dehydration; I12.9 Hypertensive chronic kidney disease with stage 1 through stage 4 chronic kidney disease, or unspecified chronic kidney disease; J44.1 Chronic obstructive pulmonary disease with (acute) exacerbation; Z68.1 Body mass index [BMI] 19.9 or less, adult; R62.7 Adult failure to thrive; E11.649 Type 2 diabetes mellitus with hypoglycemia without coma; E11.65 Type 2 diabetes mellitus with hyperglycemia; E03.9 Hypothyroidism, unspecified; E78.5 Hyperlipidemia, unspecified; E78.00 Pure hypercholesterolemia, unspecified; E87.6 Hypokalemia; K21.9 Gastro-esophageal reflux disease without esophagitis; N18.1 Chronic kidney disease, stage 1; Z66 Do not resuscitate; Z86.73 Personal history of transient ischemic attack (TIA), and cerebral infarction without residual deficits; Z87.891 Personal history of nicotine dependence; Z99.81 Dependence on supplemental oxygen; D64.9 Anemia, unspecified; M19.90 Unspecified osteoarthritis, unspecified site; R63.0 Anorexia